=== PATIENT | male | born 1975 | race Caucasian/White ===

== ENCOUNTER 2019-12-31 12:17 | Emergency (ER) | payer OTHER, SELFPAY ==
--- NOTE | ~2019-12-31 | XR_ITS ---
EXAMINATION: XR elbow LT min 3V DATE: 12/31/2019 12:55 INDICATION: Left elbow pain after fall, initial encounter TECHNIQUE: Anteroposterior, two oblique and lateral views of the left elbow were obtained. COMPARISON: None. FINDINGS: There is an acute, traumatic, closed, oblique intra-articular fracture at the lateral head of the radius. A large joint effusion is present. The visualized portions of the ulna and distal zaynab teodoro are unremarkable. IMPRESSION: 1. Acute intra-articular fracture of the radial head with large joint effusion. Reviewed, dictated and finalized at location A.
[2019-12-31 12:28] VITALS: BP 148/87; PULSE 89; RESP 20; TEMP 37.3; O2SAT 100
--- NOTE | 2019-12-31 12:39 | ED.GENADULT ---
HPI - General Adult General Chief complaint: Extremity Injury, Upper Stated complaint: Injury to left arm Time Seen by Provider: 12/31/19 12:39 Source: patient and RN notes reviewed Mode of arrival: ambulatory Limitations: no limitations History of Present Illness HPI narrative: 44-year-old male presents with complaints of LT lateral elbow tenderness and swelling for the past 4 hours. No treatment. Fran says he fell and hit LT elbow and LT palm of hand (denies pain in hand at this time) while getting out of box van (approximately 3 feet high). No radiation of pain. Exacerbation factor consist of movement and palpation of elbow. The relieving factor is immobility. Dominant hand is the RIGHT HAND. No suspected abuse. Denies hitting head with fall. Denies loss of consciousness, dizziness, or seizure activity. Denies fever or chills. Denies diarrhea, abdominal pain, nausea, and vomiting. Tolerating po intake well. Denies headaches, weakness, fatigue, myalgia. Denies chest pain or dyspnea. Denies cough, rhinorrhea, congestion, and sore throat. Denies recent traveling. Denies concern for COVID-19 or exposures been home since [id number] order except for essential household needs, work, and return home. Some parts of this dictation were generated by voice recognition software and may contain typographical and/or grammatical inaccuracies. Related Data Allergies Allergy/AdvReac Type Severity Reaction Status Date / Time No Known Allergies Allergy Verified 12/31/19 12:37 Review of Systems Review of Systems: Narrative: CONSTITUTIONAL: Denies fever, chills, sweats. EYES: Denies visual changes, redness, discharge. ENT: Denies rhinorrhea, congestion, sore throat, otalgia. CARDIOVASCULAR: Denies chest pain, palpitations, edema. RESPIRATORY: Denies dyspnea, wheezing, cough. GASTROINTESTINAL: Denies abdominal pain, nausea, vomiting, diarrhea. GENITOURINARY: Denies dysuria, hematuria, abnormal discharge SKIN: Denies rash or itching. MUSCULOSKELETAL: Denies acute back pain or myalgia. Complains of LT lateral elbow pain and swelling. NEUROLOGIC: Denies numbness or focal weakness. PSYCHIATRIC: Denies anxiety or depression. All other systems reviewed & are unremarkable except as noted in HPI and below. [facility] Past Medical History Medical History (Updated 05/11/20 @ 13:29 by SEAN Mcintosh) Failed total knee, left Foot fracture, left Right patella fracture Staph infection Surgical History Surgical History (Updated 12/31/19 @ 12:53 by SEAN Mcintosh) History of total knee arthroplasty Left, that was a failure per Fran Family History Family History (Updated 12/31/19 @ 12:54 by SEAN Mcintosh) Mother Leukemia Father Alive and well Social History Social History (Updated 12/31/19 @ 12:55 by SEAN Mcintosh) Smoking packs per day: 2 Smoking cigarettes per day: 40.0 Years smoked: 25 Smoking pack-years: 50.00 Smoking status: Current every day smoker Tobacco type: cigarettes Second hand tobacco smoke exposure: No Alcohol intake: current Alcohol use details: Very rarely per Fran Substance use: current Substance use type: marijuana Living arrangements: with family Occupation/Education: occupation Gender identity (if verbalized by the patient): Male Exam Narrative: Exam Narrative: GENERAL: This is a well-nourished, well-developed patient, in no apparent distress. Speaks in full sentences and ambulates with steady gait without dyspnea HEAD: normocephalic, atraumatic. EYES: PERRL. Sclera clear/white. Vision is grossly intact. NECK: Supple and nontender with full range of motion without discomfort. No meningeal signs. CARDIOVASCULAR: Regular rate and rhythm without murmurs, gallops, or rubs. RESPIRATORY: Clear to auscultation. Breath sounds equal bilaterally. No wheezes, rales, or rhonchi. GASTROINTESTINAL: Abdomen soft, non-tender, nondistended. Naomy
[2019-12-31] MEDS: KETOROLAC (*BKC) 60 MG/2 ML VIAL IM (12:55)
== END 2019-12-31 13:40 | disposition home or self-care (01) ==
PROVIDERS: Emergency Provider Nurse Practitioner Family
DX: S52.122A Displaced fracture of head of left radius, initial encounter for closed fracture (principal); F17.210 Nicotine dependence, cigarettes, uncomplicated; W17.89XA Other fall from one level to another, initial encounter
CPT/HCPCS: 29105; 73080; 96372; 99214; A4565; G0463; J1885